=== PATIENT | female | born 1960 | race Two or more races ===

== ENCOUNTER 2022-05-17 17:42 | Emergency (ER) | payer OTHER ==
[~2022-05-17] VITALS: Ht 152.4 cm; Wt 69.9 kg
[2022-05-17] MEDS ORDERED: SINGULAIR10 MG (17:54)
[2022-05-17] MEDS ORDERED: ZYRTEC10 MG PO (17:54)
[2022-05-17] MEDS ORDERED: PERCOCET 5-3251 EACH PO (20:28)
== END 2022-05-17 20:59 | disposition home or self-care (01) ==
LOC: ER 17:42
DX: S50.11XA Contusion of right forearm, initial encounter (principal); S80.01XA Contusion of right knee, initial encounter; S60.211A Contusion of right wrist, initial encounter; W19.XXXA Unspecified fall, initial encounter; Y93.9 Activity, unspecified; Y92.89 Other specified places as the place of occurrence of the external cause; Y99.9 Unspecified external cause status; Z85.3 Personal history of malignant neoplasm of breast

== ENCOUNTER 2022-11-20 10:05 | Emergency (ER) | payer OTHER ==
[~2022-11-20] VITALS: Ht 170.2 cm; Wt 74.8 kg
[~2022-11-20 10:05] MED LIST: PERCOCET 5-3251 EACH PO; SINGULAIR10 MG; ZYRTEC10 MG PO
[2022-11-20] MEDS ORDERED: SYMBICORT 16010.2 GM IH (10:35)
== END 2022-11-20 14:21 | disposition home or self-care (01) ==
LOC: ER 10:05
DX: S93.692A Other sprain of left foot, initial encounter (principal); X50.9XXA Other and unspecified overexertion or strenuous movements or postures, initial encounter; Y93.89 Activity, other specified; Y92.89 Other specified places as the place of occurrence of the external cause; Z85.3 Personal history of malignant neoplasm of breast; S92.912A Unspecified fracture of left toe(s), initial encounter for closed fracture